=== PATIENT | female | born 1995 | race Asian ===

== ENCOUNTER 2017-07-05 17:58 | Emergency (ER) | payer OTHER ==
[~2017-07-05] VITALS: Ht 151.1 cm; Wt 47.0 kg
[2017-07-05 18:22] VITALS: TEMP 37; Ht 151.1 cm; Wt 47.0 kg
--- NOTE | 2017-07-05 19:14 | DIAGNOSTIC IMAGING REPORT ---
CT OF THE HEAD WITHOUT CONTRAST CLINICAL HISTORY: Head injury. Concussion symptoms. COMPARISON STUDY: No previous studies for comparison. CT DOSE: 537.48 mGy.cm TECHNIQUE: Helical axial images of the head were obtained without IV contrast. Automated exposure control was utilized for the study. A dose lowering technique was utilized adhering to the principles of ALARA. FINDINGS: No acute intracranial hemorrhage, midline shift or mass effect is present. Brain volume is normal. Ventricular system is normal. Basilar cisterns are patent. There are no extra-axial collections. Sargent-white differentiation is maintained. No calvarial fracture is identified. Visualized portions of the sinuses and mastoid air cells are clear. IMPRESSION: 1. No acute intracranial findings. 2. No calvarial fracture. Electronically signed by: Javier Gillespie M.D. 07/05/2017 7:12 PM Dictated Date/Time: 07/05/2017 7:10 PM
[2017-07-05] MEDS ORDERED: ONDANSETRON HOME PACK 4MG OD TAB PO ONE (20:15)
[2017-07-05 20:17] VITALS: BP 102/66; PULSE 62; O2SAT 99
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
== END 2017-07-05 20:20 | disposition home or self-care (01) ==
LOC: C.EDB 18:00 → C.EDD 20:20
DX: S06.0X0A Concussion without loss of consciousness, initial encounter (principal); W50.0XXA Accidental hit or strike by another person, initial encounter; Y93.41 Activity, dancing; Y92.89 Other specified places as the place of occurrence of the external cause

== ENCOUNTER 2017-07-22 16:53 | Emergency (ER) | payer OTHER ==
[~2017-07-22] VITALS: Ht 149.9 cm; Wt 47.4 kg
[2017-07-22 16:56] VITALS: TEMP 36.7; Ht 149.9 cm; Wt 47.4 kg
[2017-07-22] MEDS ORDERED: ACET-1311 PO (17:06)
[2017-07-22] MEDS ORDERED: ONDA4TAB10 SL (17:06)
--- NOTE | 2017-07-22 17:36 | EMERGENCY ROOM VISIT NOTE ---
History First contact with patient: 17:03 Chief Complaint: HEAD INJURY (MINOR) Stated Complaint: FOLLOWING UP POST CONCUSSION History of Present Illness The patient is a 22 year old female who presents to the Emergency Room with complaints of posterior head pain and neck pain that started to get worse over the last few days. Patient had a head injury 2 weeks ago. She was evaluated in the emergency department 2 days after the injury. A CT of the head was performed. It was thought that she may have a mild concussion in her symptoms. Patient says that the dizziness and nausea have dramatically improved. The pain in the back of her head and left side of her neck only started getting worse 2 days ago. She has tried Tylenol with minimal relief of the symptoms. She denies any numbness or tingling. No changes in vision. Review of Systems 6 system review negative. Please see pertinent positives in the history of present illness section. Past Medical/Surgical History TMJ dysfunction Social History Smoking Status: Never Smoker Occupation Status: [employer] student Current/Historical Medications Scheduled Cyclobenzaprine Hcl (Flexeril), 10 MG PO TID Prednisone (Prednisone), 50 MG PO DAILY Scheduled PRN Acetaminophen (Tylenol), 1 DOSE PO DIRECTED PRN for Pain Ondasetron Odt (Zofran Odt), 4 MG SL Q6H PRN for Nausea or Vomiting Physical Exam Vital Signs Date Time Temp Pulse Resp B/P (MAP) Pulse Ox O2 Delivery O2 Flow Rate FiO2 07/22/17 18:29 69 18 102/47 100 07/22/17 16:56 36.7 73 18 105/68 98 Room Air Physical Exam VITALS: Vitals are noted on the nurse's note and reviewed by myself. Vital signs stable. GENERAL: 22-year-old female, in no acute distress SKIN: The skin was without rashes, erythema, edema, or bruising. HEAD: Normocephalic atraumatic. EARS: External auditory canals clear, tympanic membranes pearly carter without erythema or effusion bilaterally. EYES: Pupils equal round and reactive to light and accommodation. Conjunctivae without injection, sclerae without icterus. Extraocular movements intact. MOUTH: Mucous membranes moist. Tonsils are not enlarged. Pharynx without erythema or exudate. Uvula midline. Airway patent. Tongue does not deviate. NECK: Slight tenderness to palpation over the upper left trapezius muscle. Mild tenderness over the spinous processes in the mid cervical spine.. MUSCULOSKELETAL: . Normal gait. Strength 5/5 throughout. NEURO: Patient was alert and oriented to person place and time. Cranial nerves grossly intact. Cerebellar function intact. Negative Romberg. Normal heel to toe walking. Normal sensation to touch. No focal neurological deficits. Medical Decision & Procedures ER Provider Diagnostic Interpretation: Cervical spine imaging IMPRESSION: No fracture or subluxation within the cervical spine. The above report was generated using voice recognition software. It may contain grammatical, syntax or spelling errors. Electronically signed by: Joey Velasco M.D. 07/22/2017 5:37 PM Dictated Date/Time: 07/22/2017 5:36 PM The status of this report is Signed. Draft = Not yet reviewed or approved by Radiologist. Signed = Reviewed and approved by Radiologist. ED Course The patient was seen and examined Imaging was performed and reviewed Findings were discussed with the patient. She voiced understanding. She is comfortable being discharged home. Discharge instructions were reviewed, and she was discharged in good condition Medical Decision Differential diagnosis: Spine fracture, ligamentous injury, subluxation, spondylolisthesis, spondylosis, herniated disc, contusion, muscle spasm, postconcussive syndrome, headache, TMJ dysfunction. This patient is a 22-year-old female that returns to the emergency department complaining of posterior head and neck pain 2 weeks after a head injury. On exam, she had mild tenderness in the musculature of her neck in addition to the cervical spinous processes. She was neurologically intact. The patient had a CT scan 2 days after the head injury. I do not suspect any intracranial abnormality. This is likely muscular pain. The patient will be treated with a short course of muscle relaxants and steroids. She was also instructed to take ibuprofen. She will avoid any exacerbating activities. I also recommended that she follow-up with a concussion clinic next week. She was comfortable with this plan. She agrees to return with any worsening symptoms. Medication Reconcilliation Current Medication List: was personally reviewed by me Blood Pressure Screening Patient's blood pressure: Normal blood pressure Impression Primary Impression: Neck pain Departure Information Dispostion Home / Self-Care Condition GOOD Prescriptions Prednisone (Prednisone) 50 Mg Tab 50 MG PO DAILY for 5 Days, #5 TAB Prov: Fariha Sarmiento PA-C 07/22/17 Cyclobenzaprine Hcl (FLEXERIL) 10 Mg Tab 10 MG PO TID for Muscle Spasms, #15 TAB Prov: Fariha Sarmiento PA-C 07/22/17 Referrals [facility] (PCP) Jack Cortez M.D. Patient Instructions My [facility] Additional Instructions You have been evaluated in the emergency department for continued pain. This is likely muscular in nature. Please take Flexeril 1 tab every 8 hours as needed for muscle pain. Please also take ibuprofen 400 mg (2 [id number] tabs) every 6 hours as needed for pain Please apply moist, warm compresses to the area every 6 hours for the next 72 hours Please avoid any strenuous activity until follow-up with the concussion clinic. Please call Tuesday morning for a follow-up appointment. The number has been provided. Please do not hesitate to return to the emergency department with any new, worsening or concerning symptoms; especially, weakness, changes in vision or persistent vomiting
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
[2017-07-22] MEDS ORDERED: CYCL10TA6 PO (18:08)
[2017-07-22] MEDS ORDERED: PRED50TA PO (18:08)
[2017-07-22 18:29] VITALS: BP 102/47; PULSE 69; O2SAT 100
== END 2017-07-22 18:29 | disposition home or self-care (01) ==
LOC: C.EDB 16:54 → C.EDD 18:29
DX: M54.2 Cervicalgia (principal)